=== PATIENT | male | born 1935 | race Caucasian/White ===

== ENCOUNTER 2016-08-08 09:02 | Outpatient (CLI) ==
--- NOTE | 2016-08-08 10:34 | CT ---
EXAM: CT abdomen with and without contrast. CT pelvis with and without contrast. HISTORY: Irritable bowel syndrome. Change in bowel habits. Abdominal pain. COMPARISON: 11/23/2008. TECHNIQUE: Multiple axial images of the abdomen and pelvis were obtained prior to and following int ravenous administration of 80 mL of Visipaque 320, low osmolar. Images reformatted in the coronal p saravanan. FINDINGS: Subsegmental atelectasis or scarring noted in the lung bases. Degenerative changes prese nt in line. Hepatic cysts are stable. The gallbladder, pancreas, spleen, and adrenal glands are unremarkable. Nonobstructing bilateral renal calculi seen. There is no hydronephrosis. Right renal cyst is presen t. Small sliding hiatal hernia noted. Diverticula are present in the colon. The appendix is normal. There is no evidence for bowel obstruction or acute inflammation. Right posterolateral bladder dive rticulum noted on postcontrast axial image 77. Bladder is otherwise unremarkable. Prostate is mild ly enlarged. IMPRESSION: 1. No acute abnormality within the abdomen or pelvis. 2. Diverticulosis. 3. Small hiatal hernia. 4. Bilateral nephrolithiasis. 5. Prostatic enlargement. 6. Right posterolateral urinary bladder diverticulum.
== END 2016-08-08 09:03 | disposition home or self-care (01) ==
LOC: RAD 09:02
PROVIDERS: ATTEND Internal Medicine
DX: K58.9 Irritable bowel syndrome, unspecified (principal)

== ENCOUNTER 2016-10-14 09:54 | Day surgery (SDC) ==
[2016-10-14] MEDS ORDERED: LIDOCAINE 2% 20 ML MDV ONE (10:30)
[2016-10-14] MEDS ORDERED: LIDOCAINE 1% 20 ML MDV ID ONE (10:30)
[2016-10-14] MEDS ORDERED: VERSED ONE (11:35)
[2016-10-14] MEDS ORDERED: DIPRIVAN 20 ML VIAL IVP ONE (11:35)
[2016-10-14 12:52] VITALS: BP 155/96; TEMP 97.7
--- NOTE | 2016-10-15 11:57 | OP ---
INDICATIONS FOR PROCEDURE: 81 year old gentleman present for change in bowel habits manifest by increase in constipation. MEDICATIONS: SEE ANESTHESIA NOTES. PROCEDURE: COLONOSCOPY, SNARE POLYPECTOMY REPORT: The risks, benefits, alternatives and limitations were discussed in detail with the patient. Informed consent was obtained. After adequate sedation was achieved, a digital rectal exam revealed good tone, no masses. The colonoscope was introduced into the rectum and advanced under direct visual guidance to the cecum. The cecum was identified by the appendiceal orifice and IC valve. In the cecum there is a sessile 6-7mm polyp, I removed this by snare technique. I then slowly withdrew the scope in a circumferential manner and examined the mucosa quite carefully. I looked the proximal and distal sides of the folds and flexures as best as possible. In the proximal ascending colon there is a 6mm slightly raised polyp that I removed by snare technique. In the distal ascending colon there is a 4-5mm polyp that was destroyed by using a snare. The pieces that were obtained by the ascending and cecum were placed together in the same pathology jar. In the proximal transverse there is a 5mm slightly raised polyp that I removed by snare technique. There was moderate diverticulosis scattered throughout the descending and left colon manifested by large and small mouth diverticula. In the rectum there is a slightly raised 6mm sessile polyp that I removed by snare technique and no other abnormalities noted including on retroflex view of the anal canal. The prep was good and the withdraw time was 13 minutes and 28 seconds. The patient tolerated the procedure well with stable vital signs and pulse oximetry throughout. IMPRESSION: 1. 5 polyps removed 2. Diverticulosis RECOMMENDATIONS: 1. High fiber diet, I suggested daily fiber supplement. I have talked to him about this. I suggested 8-10grams of fiber daily and the supplement 2. Await polyp pathology and if everything is benign as expected and he is clinically well I recommend a repeat colonoscopy examination again in three years. 3. We will see him back in the office as needed. CC: Dr. Johan BURROWS
== END 2016-10-14 13:10 | disposition home or self-care (01) ==
LOC: SURG 09:54
PROVIDERS: ATTEND Internal Medicine Gastroenterology
DX: K59.00 Constipation, unspecified (principal); D12.0 Benign neoplasm of cecum; D12.3 Benign neoplasm of transverse colon; D12.7 Benign neoplasm of rectosigmoid junction; D12.2 Benign neoplasm of ascending colon; K63.5 Polyp of colon; K57.30 Diverticulosis of large intestine without perforation or abscess without bleeding

== ENCOUNTER 2018-05-20 12:28 | Inpatient (IN) | payer OTHER ==
[2018-05-20] MEDS ORDERED: ZOFRAN 4 MG/2 ML IVP STA (13:06)
[2018-05-20 13:26] VITALS: BMI 28.1
[2018-05-20] MEDS ORDERED: TORADOL IVP SCH (13:30)
[2018-05-20] MEDS ORDERED: TORADOL ONE (13:42)
[2018-05-20] MEDS ORDERED: FLAGYL 500 MG/100 ML 100 ML IV ONE (13:42)
[2018-05-20] MEDS ORDERED: LEVAQUIN 100 ML IV ONE (13:42)
[2018-05-20] MEDS: LEVAQUIN 500 MG in PREMIX 100 ML D5W 1 BAG IV SCH (13:49)
[2018-05-20] MEDS: DEXTROSE 5%-1/2NS IV SOLUTION 1,000 ML IV SCH (13:50)
[2018-05-20] MEDS ORDERED: TORADOL IVP PRN (15:58)
--- NOTE | 2018-05-20 15:58 | CT ---
EXAM: CT abdomen pelvis with contrast TECHNIQUE: Helical axial CT of the abdomen and pelvis was performed with contrast with coronal and s agittal reconstructions. COMPARISON: CT abdomen pelvis from 08/08/2016 HISTORY: Abdominal pain FINDINGS: There is a short loop of sigmoid colon which demonstrates some surrounding mesenteric edema and bowel wall thickening. There are multiple adjacent diverticuli. There is no free air or abscess identifi ed and there is no obstruction or ileus. No pathologic lymph nodes are seen. The appendix is normal. The liver, spleen, pancreas,and adrenal glands show no acute abnormality. There are a few tiny foci o f decreased attenuation within the liver likely simple cyst but too small to characterize. Lung bases are well-aerated. There is no hiatal hernia. The gallbladder is normal with no stones or inflammati on. There is no biliary or pancreatic ductal dilatation. There are no suspicious renal masses or large cysts and no hydronephrosis. There is a nonobstructive calyceal stone measuring about 0.4 cm in the interpolar region on the left. There is a small right r enal cyst. Both ureters demonstrate normal course and caliber. There is no filling defect in the uri nary bladder. There is a bladder diverticulum on the right. The prostate is modestly enlarged. There are no abdominal wall hernias. There is calcific atherosclerosis. There are no acute osseous ab normalities. IMPRESSION: 1. Sigmoid diverticulitis. 2. Right bladder diverticulum. 3. Nonobstructive left-sided nephrolithiasis. 4. Other nonacute findings as above.
--- NOTE | 2018-05-20 16:35 | DI ---
Exam: Chest two-view HISTORY: Chronic obstructive pulmonary disease. Comparison: 10/12/2014. FINDINGS: Two views of the chest demonstrate hyper expanded lungs with no evidence of pneumothorax, pneumonia or edema. There is mild linear opacity in the right mid lung similar to prior. The heart is normal in size and configuration. The thoracic aorta is partially calcified. Calcified granuloma ta are noted. The pulmonary vasculature is not congested. The skeletal structures are intact. There are degenerative findings in the spine. IMPRESSION: No acute cardiopulmonary disease. Hyperexpanded lungs consistent with COPD. Atherosclerosis.
[2018-05-20] MEDS: FLAGYL 500 MG/100 ML 500 MG in PREMIX 100 ML NS 1 BAG IV SCH ×2 (17:51→20:44)
[2018-05-20] MEDS: PROSCAR PO SCH (20:44)
[2018-05-20] MEDS: UROXATRAL PO SCH (20:44)
[2018-05-21] MEDS: DEXTROSE 5%-1/2NS IV SOLUTION 1,000 ML IV SCH ×2 (04:25→19:42)
[2018-05-21] MEDS: FLAGYL 500 MG/100 ML 500 MG in PREMIX 100 ML NS 1 BAG IV SCH ×3 (04:25→20:25)
[2018-05-21] MEDS ORDERED: MILK OF MAGNESIA PO PRN (08:08)
[2018-05-21] MEDS: ASPIRIN EC PO SCH (08:46)
[2018-05-21] MEDS: INDERAL PO SCH (08:46)
[2018-05-21] MEDS: HYZAAR 50-12.5 MG TAB PO SCH (08:46)
[2018-05-21] MEDS: LEVAQUIN 500 MG in PREMIX 100 ML D5W 1 BAG IV SCH (08:46)
--- NOTE | 2018-05-21 08:52 | PCM.PROG ---
Attending Provider: ATTENDING PROVIDER: Dr. VIKTOR FISHMAN DATE OF SERVICE: 05/21/18 SUBJECTIVE: This 83 year old WHITE/ M was hospitalized 05/20/18 with left lower quadrant pain. He has diverticulitis by CT scan. REVIEW OF SYSTEMS: CONSTITUTIONAL: No night sweats. No fatigue, malaise, lethargy. No fever or chills. HEENT: Eyes: No visual changes. No eye pain. No eye discharge. ENT: No runny nose. No epistaxis. No sinus pain. No odynophagia. No congestion. RESPIRATORY: No cough, no congestion. No hemoptysis. No shortness of breath. CARDIOVASCULAR: No angina symptoms. No CHF symptoms. No atypical chest pain for CAD. No palpitations. No orthopnea.. GASTROINTESTINAL: Pain is much less, no BM yet. No nausea or vomiting. No hematemesis. No hematochezia. GENITOURINARY: No urgency. No frequency. No dysuria. No hematuria. No obstructive symptoms. No discharge. No pain. No significant abnormal bleeding. MUSCULOSKELETAL: No musculoskeletal pain; no joint swelling. NEUROLOGICAL: Awake, alert, oriented to time, place and person. No headache. No neck pain. No syncope. No seizures. No dizziness. PSYCHIATRIC: Not anxious. No depression. No suicidal thoughts. No homicidal thoughts. SKIN: No rash. No lesions. No wounds. ENDOCRINE: No unexplained weight loss. No weight gain. HEMATOLOGIC/LYMPHATIC: No anemia. No purpura. No petechiae. No prolonged or excessive bleeding. No palpable lymph nodes. PHYSICAL EXAMINATION: GENERAL: The patient is awake, alert and oriented, lying in bed in no distress. VITAL SIGNS: Temperature 98 F, Pulse 63, Respiratory Rate 18, BP 123/63, Pulse Ox 97% HEENT: Head normocephalic, atraumatic. Eyes: Extraocular muscles are intact. Pupils are equal, round and reactive to light and accommodation. Ears: No lesions. Nose appeared normal. Throat: No exudate or erythema. NECK: Supple. No JVD, no carotid bruit. No lymphadenopathy or thyromegaly. LUNGS: Clear to auscultation. Percussion note normal. Chest symmetrical. HEART: S1, S2, no S3. No murmurs. No cyanosis or clubbing. No ascites. Pulses: Dorsalis pedis and posterior tibial pulses +1 to +2 both sides. ABDOMEN: Soft. Left lower quadrant tenderness, mild. Bowel sounds active. No CVA tenderness. No mass felt. EXTREMITIES: No edema. Full range of motion of all extremities, equal. NEUROLOGIC: No focal deficit. Cranial nerves II through XII are grossly intact. No headache, no double vision or headache. SKIN: Warm and dry. Intact. Turgor-normal. LYMPHATIC: No palpable lymph nodes/no lymphedema. MUSCULOSKELETAL: Normal joints with no swelling. Muscle tone is normal. LAB REVIEW: 05/21/18 05:05 05/21/18 05:05 05/21/18 05:05: Sodium 135.4 L, Potassium 3.78, Chloride 106.4, Carbon Dioxide 27.0, Anion Gap 5.78, BUN 20.7 H, Creatinine 1.56 H, Estimated GFR (MDRD) 43.00 , BUN/Creatinine Ratio 13.26, Glucose 134.4 H, Calcium 8.36 L, Total Bilirubin 0.53, AST 15.3 L, ALT 12.0, Alkaline Phosphatase 48.0 L, Total Protein 5.39 L, Albumin 3.03 L, Globulin 2.36, Albumin/Globulin Ratio 1.28 05/21/18 05:05: WBC 5.34, RBC 3.86 L, Hgb 11.7 L, Hct 34.6 L D, MCV 89.6, MCH 30.3, MCHC 33.8, RDW Coeff of Jac 12.6, Plt Count 94 L, Immature Gran % (Auto) 0.4, Neut % (Auto) 59.2, Lymph % (Auto) 20.4, [place] % (Auto) 12.0 H, Eos % (Auto ) 7.1 H, Baso % (Auto) 0.9, Immature Gran # (Auto) 0.0, Neut # (Auto) 3.2, Lymph # (Auto) 1.1, [place] # (Auto) 0.6, Eos # (Auto) 0.4, Baso # (Auto) 0.1 05/20/18 17:36: Urine Color Yellow, Urine Clarity Clear, Urine pH 5.5, Ur Specific [place] 1.010, Urine Protein Negative, Urine Glucose (UA) Negative, Urine Ketones Negative, Urine Blood 2+, Urine Nitrite Negative, Urine Bilirubin Negative, Urine Urobilinogen 0.2, Ur Leukocyte Esterase Negative, Urine Microscopic RBC 10-20, Ur Squamous Epith Cells Not present 05/20/18 13:25: Sodium 138.9, Potassium 4.20, Chloride 105.8, Carbon Dioxide 30.9 H, Anion Gap 6.40, BUN 20.4 H, Creatinine 1.50 H, Estimated GFR (MDRD) 45.00, BUN/Creatinine Ratio 13.60, Glucose 134.4 H, Calcium 9.39, Total Bilirubin 0.84, AST 20.4, ALT 15.0, Alkaline Phosphatase 65.2, Total Protein 6.90, Albumin 4.15, Globulin 2.75, Albumin/Globulin Ratio 1.50 05/20/18 13:25: WBC 7.38, RBC 4.62 L, Hgb 14.3, Hct 41.8 L, MCV 90.5, MCH 31.0, MCHC 34.2, RDW Coeff of Jac 12.8, Plt Count 115 L, Immature Gran % (Auto) 0.4, Neut % (Auto) 69.7, Lymph % (Auto) 14.4, [place] % (Auto) 9.5, Eos % (Auto) 5.3, Baso % (Auto) 0.7, Immature Gran # (Auto) 0.0, Neut # (Auto) 5.2, Lymph # (Auto ) 1.1, [place] # (Auto) 0.7, Eos # (Auto) 0.4, Baso # (Auto) 0.1 ASSESSMENT: 1. Acute diverticulitis seems to be resolving clinically. 2. Chronic kidney disease. 3. Hypertension. PLAN: 1. Continue antibiotics 2. Diet for diverticulosis 3. Soft diet 4. Milk of Magnesia 30 cc 5. D/C telemetry 6. Continue IV fluids Plan and coordination of the patient's care discussed in the presence of Program Scheduler and nurse. CONDITION: Stable SCRIBED BY: Ember VELAZQUEZ scribed while in presence of service performed by Dr. VIKTOR FISHMAN on 05/21/18 ([id number])
[2018-05-21] MEDS ORDERED: PROSCAR PO SCH (09:00)
[2018-05-21] MEDS ORDERED: UROXATRAL PO SCH (09:00)
[2018-05-21] MEDS ORDERED: FLAGYL 500 MG/100 ML 100 ML IV ONE (12:51)
[2018-05-21] MEDS ORDERED: FLAGYL 500 MG/100 ML IV ONE (20:12)
[2018-05-21] MEDS: UROXATRAL PO SCH (20:25)
[2018-05-21] MEDS: PROSCAR PO SCH (20:25)
[2018-05-22] MEDS: FLAGYL 500 MG/100 ML 500 MG in PREMIX 100 ML NS 1 BAG IV SCH ×3 (05:47→20:48)
[2018-05-22] MEDS ORDERED: LEVAQUIN 100 ML IV ONE (08:09)
[2018-05-22] MEDS ORDERED: FLAGYL 500 MG/100 ML 100 ML IV ONE (08:09)
[2018-05-22] MEDS: ASPIRIN EC PO SCH (08:34)
[2018-05-22] MEDS: LEVAQUIN 500 MG in PREMIX 100 ML D5W 1 BAG IV SCH (08:34)
[2018-05-22] MEDS: INDERAL PO SCH (08:34)
[2018-05-22] MEDS: HYZAAR 50-12.5 MG TAB PO SCH (08:34)
[2018-05-22] MEDS: DEXTROSE 5%-1/2NS IV SOLUTION 1,000 ML IV SCH (10:34)
[2018-05-22] MEDS ORDERED: MILK OF MAGNESIA PO STA (13:26)
[2018-05-22] MEDS ORDERED: DULCOLAX RC STA (13:26)
[2018-05-22] MEDS: UROXATRAL PO SCH (20:48)
[2018-05-22] MEDS: PROSCAR PO SCH (20:49)
[2018-05-23] MEDS: FLAGYL 500 MG/100 ML 500 MG in PREMIX 100 ML NS 1 BAG IV SCH ×3 (05:54→20:04)
[2018-05-23] MEDS: HYZAAR 50-12.5 MG TAB PO SCH (08:45)
[2018-05-23] MEDS: LEVAQUIN 500 MG in PREMIX 100 ML D5W 1 BAG IV SCH (08:45)
[2018-05-23] MEDS: ASPIRIN EC PO SCH (08:45)
[2018-05-23] MEDS: INDERAL PO SCH (08:45)
[2018-05-23] MEDS: UROXATRAL PO SCH (20:04)
[2018-05-23] MEDS: PROSCAR PO SCH (20:04)
[2018-05-24] MEDS: FLAGYL 500 MG/100 ML 500 MG in PREMIX 100 ML NS 1 BAG IV SCH (05:10)
[2018-05-24] MEDS: ASPIRIN EC PO SCH (08:38)
[2018-05-24] MEDS: INDERAL PO SCH (08:38)
[2018-05-24] MEDS: HYZAAR 50-12.5 MG TAB PO SCH (08:38)
--- NOTE | 2018-05-24 09:05 | CT ---
EXAM: CT abdomen with and without contrast. CT pelvis with and without contrast. HISTORY: Diverticulitis follow-up. COMPARISON: 05/20/2018, 08/08/2016. TECHNIQUE: Multiple axial images of the abdomen and pelvis were obtained prior to and following intr avenous administration of 75 mL of Visipaque 320, low osmolar. Images reformatted in the sagittal an d coronal plane. FINDINGS: Degenerative changes present in the spine. Right middle lobe and lingular subsegmental at electasis or scarring is stable. Hepatic cysts again noted. The gallbladder, pancreas, spleen, adrenal glands, and kidneys are withou t acute abnormality. Bilateral nephrolithiasis noted without hydronephrosis. Right renal cyst again seen. Small hiatal hernia noted. Mild inflammation surrounding a sigmoid diverticulum on postcontrast axia l image 67 has mildly decreased since the prior study. There is no evidence for bowel obstruction, p erforation or abscess. The appendix is normal. Right posterolateral bladder diverticulum again seen . Prostate is mildly enlarged. Phleboliths present in the pelvis. Atherosclerotic calcifications n oted. No free fluid, free air or lymphadenopathy identified. Suspect fat-containing right femoral he rnia and left inguinal hernia. IMPRESSION: Mild improvement in sigmoid diverticulitis. No new findings within the abdomen or pelvis.
[2018-05-24 10:05] VITALS: BP 117/75; TEMP 97.9
--- NOTE | 2018-05-24 10:32 | PCM.PROG ---
Attending Provider: ATTENDING PROVIDER: Dr. VIKTOR FISHMAN DATE OF SERVICE: 05/24/18 SUBJECTIVE: This 83 year old WHITE/ M was hospitalized 05/20/18 with acute diverticulitis. Clinically, diverticulitis has resolved. REVIEW OF SYSTEMS: CONSTITUTIONAL: No night sweats. No fatigue, malaise, lethargy. No fever or chills. HEENT: Eyes: No visual changes. No eye pain. No eye discharge. ENT: No runny nose. No epistaxis. No sinus pain. No odynophagia. No congestion. RESPIRATORY: No cough, no congestion. No hemoptysis. No shortness of breath. CARDIOVASCULAR: No angina symptoms. No CHF symptoms. No atypical chest pain for CAD. No palpitations. No orthopnea.. GASTROINTESTINAL: Positive for mild soreness left lower quadrant. No nausea or vomiting. No diarrhea or constipation. No hematemesis. No hematochezia. GENITOURINARY: No urgency. No frequency. No dysuria. No hematuria. No obstructive symptoms. No discharge. No pain. No significant abnormal bleeding. MUSCULOSKELETAL: No musculoskeletal pain; no joint swelling. NEUROLOGICAL: Awake, alert, oriented to time, place and person. No headache. No neck pain. No syncope. No seizures. No dizziness. PSYCHIATRIC: Not anxious. No depression. No suicidal thoughts. No homicidal thoughts. SKIN: No rash. No lesions. No wounds. ENDOCRINE: No unexplained weight loss. No weight gain. HEMATOLOGIC/LYMPHATIC: No anemia. No purpura. No petechiae. No prolonged or excessive bleeding. No palpable lymph nodes. PHYSICAL EXAMINATION: GENERAL: The patient is awake, alert and oriented, sitting in bed in no distress. VITAL SIGNS: Temperature 98.7 F, Pulse 84, Respiratory Rate 16, BP 121/72, Pulse Ox 95% HEENT: Head normocephalic, atraumatic. Eyes: Extraocular muscles are intact. Pupils are equal, round and reactive to light and accommodation. Ears: No lesions. Nose appeared normal. Throat: No exudate or erythema. NECK: Supple. No JVD, no carotid bruit. No lymphadenopathy or thyromegaly. LUNGS: Clear to auscultation. Percussion note normal. Chest symmetrical. HEART: S1, S2, no S3. No murmurs. No cyanosis or clubbing. No ascites. Pulses: Dorsalis pedis and posterior tibial pulses +1 to +2 both sides. ABDOMEN: Soft. Soreness left lower quadrant. Bowel sounds active. No CVA tenderness. No mass felt. EXTREMITIES: No edema. Full range of motion of all extremities, equal. NEUROLOGIC: No focal deficit. Cranial nerves II through XII are grossly intact. No headache, no double vision or headache. SKIN: Warm and dry. Intact. Turgor-normal. LYMPHATIC: No palpable lymph nodes/no lymphedema. MUSCULOSKELETAL: Normal joints with no swelling. Muscle tone is normal. LAB REVIEW: 05/24/18 04:35 05/24/18 04:35 05/24/18 04:35: Sodium 137.6, Potassium 3.93, Chloride 106.7, Carbon Dioxide 23.9, Anion Gap 10.93, BUN 17.8, Creatinine 1.50 H, Estimated GFR (MDRD) 45.00, BUN/Creatinine Ratio 11.86, Glucose 126.1 H, Calcium 8.86, Total Bilirubin 0.53 , AST 28.6, ALT 18.3, Alkaline Phosphatase 62.6, Total Protein 6.23 L, Albumin 3.74, Globulin 2.49, Albumin/Globulin Ratio 1.50 05/24/18 04:35: WBC 6.15, RBC 4.39 L, Hgb 13.5 L, Hct 39.2 L, MCV 89.3, MCH 30.8 , MCHC 34.4, RDW Coeff of Jac 12.6, Plt Count 119 L, Immature Gran % (Auto) 0.3 , Neut % (Auto) 55.2, Lymph % (Auto) 25.4, [place] % (Auto) 11.5 H, Eos % (Auto) 6.3, Baso % (Auto) 1.3, Immature Gran # (Auto) 0.0, Neut # (Auto) 3.4, Lymph # ( Auto) 1.6, [place] # (Auto) 0.7, Eos # (Auto) 0.4, Baso # (Auto) 0.1 ASSESSMENT: Acute diverticulitis seems to have resolved. PLAN: 1. Discharge home. 2. Waiting for CT scan report. 3. Will advance diet. Plan and coordination of the patient's care discussed in the presence of Box Sealing Machine Catcher and nurse. CONDITION: Stable SCRIBED BY: CHERIE HOLT Clinical Appeals Specialist scribed while in presence of service performed by Dr. VIKTOR FISHMAN on 05/24/18 ([id number])
--- NOTE | 2018-05-24 10:56 | DS ---
DATE OF SERVICE: 05/24/18 FINAL DIAGNOSIS: 1. ACUTE SIGMOID DIVERTICULITIS (CT ABD/PELVIS AT [facility], 05/20/18) 2. LEFT LOWER QUADRANT ABDOMINAL PAIN 3. CONSTIPATION 4. ATHEROSCLEROSIS 5. HYPERTENSION 6. COPD 7. CHRONIC KIDNEY DISEASE 8. BPH 9. DIVERTICULOSIS PER COLONOSCOPY (DR. WALKER AT [facility], 10/14/16) 10. 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 ORCHIECTOMY (CHILDHOOD) 14. HERNIORRHAPHY 15. FACIAL TUMOR EXCISION 16. POLYPECTOMY (DR. WALKER AT [facility], 10/14/16) BENIGN 17. NEVER SMOKER DISCHARGE INSTRUCTIONS: Followup appointment scheduled with Dr. Prado for , 05/27/18 at 8 a.m. MEDICATIONS AT DISCHARGE: Propranolol 20 mg p.o. daily Finasteride 5 mg p.o. daily Uroxatral 10 mg p.o. daily Losartan/Hydrochlorothiazide one tab p.o. daily Aspirin 81 mg p.o. daily NEW PRESCRIPTIONS: Metronidazole (Flagyl) 500 mg take one tablet by mouth three times daily for 5 days only. DIET INSTRUCTIONS: Diet appropriate for diverticulitis. ACTIVITY: As tolerated. SMOKING: N/A DISEASE SPECIFIC EDUCATION: Diverticulitis Diet for diverticulitis HOSPITAL COURSE: This is an 83-year-old White/ male hospitalized with acute diverticulitis treated with Levaquin and Flagyl. Condition has improved. CT scan showed acute diverticulitis. Clincally diverticulitis seems to have resolved. He is having bowel movements. Appetite is normal. The patient is up and about. He is afebrile with WBC count of 6,000. Diverticuliosis diet discussed, no seeds or nuts. TIME SPENT: More than 60 minutes. [facility]
--- NOTE | 2018-05-24 10:57 | PN ---
CODING FOR BILLIN05/20/18 ADMISSION - LEVEL 5 05/21/18 INTERMEDIATE 05/22/18 INTERMEDIATE 05/23/18 INTERMEDIATE 05/24/18 DISCHARGE MTDD
--- NOTE | 2018-05-25 13:59 | HP ---
DATE OF SERVICE: 05/20/18 HISTORY OF PRESENT ILLNESS: This is an 83-year-old male with fever 2 to 3 days, left lower quadrant pain localized, constipation, no dysuria. Appetite is not good. PAST MEDICAL/SURGICAL HISTORY: Hernia repair Navel removed Basal cell CA Hypertension CKD Stage 3 BPH COPD Dyslipidemia Hyperglycemia Basal cell right arm, Dr. Warner Cervical radiculopathy Osteoarthritis knees Dizziness Testicle removed when he was a child REVIEW OF SYSTEMS: CONSTITUTIONAL: No fever, no fatigue. HEENT: No sinus drainage, no sore throat. RESPIRATORY: No cough, no congestion. CARDIOVASCULAR: No atypical chest pain for coronary artery disease. No angina , CHF symptoms, palpitations or shortness of breath. GASTROINTESTINAL: Abdominal pain. No melena. No GERD. GENITOURINARY: No hematuria, no prostatism, no polyuria. ROOM SERVICE SERVER: No blackout, no dizziness, no headache, no double vision. MUSCULOSKELETAL: Osteoarthritis pain. ENDOCRINE: No weight loss, no weight gain. SKIN: Not dry, no rash. PSYCHIATRIC: Not anxious, no depression, no suicidal thoughts, no homicidal thoughts. SOCIAL HISTORY: Marital Status: . Lives with . Alcohol Usage: No. Tobacco Usage: None. Occupation - retired. Three children. No illicit drug use. FAMILY HISTORY: Father , mother . One sister. MEDICATIONS: (home) Propranolol 20 mg p.o. daily Finasteride 5 mg p.o. daily Uroxatral 10 mg p.o. daily Losartan/Hydrochlorothiazide one tab p.o. daily Aspirin 81 mg p.o. daily ALLERGIES: NKDA PHYSICAL EXAMINATION: V/S: Pulse 77, BP 122/74, temperature 98.8, 02 sat 96%. Height 6'1", BMI 28.2, weight 214.2. GENERAL APPEARANCE: Oriented times three. HEENT: Normal. NECK: No JVP, no bruits. RESPIRATORY: Lungs are clear. CARDIOVASCULAR: S1, S2, no S3, no murmurs. No cyanosis, clubbing. No ascites. GI/ABDOMEN: Tenderness left lower quadrant. No rebound. Bowel sounds are active. EXTREMITIES: No edema, pulses +1, equal. ROOM SERVICE SERVER: Deep tendon reflexes, sensory, motor and gait all normal. ASSESSMENT: 1. LEFT LOWER QUADRANT PAIN, ACUTE DIVERTICULITIS 2. HYPERTENSION 3. RIGHT SCIATICA 4. CHRONIC KIDNEY DISEASE, STAGE 3 5. BENIGN PROSTATIC HYPERTROPHY - DR. WEBSTER 6. DYSLIPIDEMIA 7. COPD 8. CERVICAL RADICULOPATHY 9. HYPERGLYCEMIA 10. OSTEOARTHRITIS KNEES 11. BASAL CELL RIGHT ARM, DRYang CASE 12. DIZZINESS PLAN: 1. Diet - full liquid, no dairy 2. 1000 cc's D5/1/2 NS [address] scan abdomen and pelvis with contrast now 4. Chest x-ray today 5. EKG today 6. CBC, CMP today and a.m. 7. UA 8. Telemetry 9. Flagyl 500 mg IV 10. Levaquin 500 mg IV q.a.m. x3 11. Zofran 4 mg IV now 12. IV Toradol 30 mg IV now and 8 hourly p.r.n. TIME SPENT: More than 70 minutes. MTDD
== END 2018-05-24 11:27 | disposition home or self-care (01) | DRG 392 ==
LOC: MEDSURG B 12:28
PROVIDERS: ADMIT Internal Medicine; ATTEND Internal Medicine
DX: R10.32 Left lower quadrant pain (principal); K59.00 Constipation, unspecified; K21.9 Gastro-esophageal reflux disease without esophagitis; I70.90 Unspecified atherosclerosis; I10 Essential (primary) hypertension; N18.9 Chronic kidney disease, unspecified; N40.0 Benign prostatic hyperplasia without lower urinary tract symptoms; M50.30 Other cervical disc degeneration, unspecified cervical region; J44.9 Chronic obstructive pulmonary disease, unspecified
CPT/HCPCS: 36415; 80053; 81001; 85025; 93005; 93010

== ENCOUNTER 2018-10-07 06:40 | Outpatient (CLI) ==
--- NOTE | 2018-10-11 11:37 | ECHO2D ---
Date of Exam: 10/07/2018 Ordering Physician: DR. FISHMAN Room #: OUTPATIENT Reason for Echo: SHORTNESS OF BREATH M-Mode Normal Adult Results LV Dimensions Normal Adult Results AoV Opening excursions >1.6 >1.6 LVEDD-base- 3.5-5.8 5.4 Ao root dimensions 2.0-3.7 4.1 LVESD-base- 3.1-4.6 L. Atrium dimensions 1.9-3.8 5.1 Post. Wall thickness 0.8-1.1 1.1 IV septum (thickness) 0.7-1.2 1.2 Post. Wall excursion 0.72-1.3 NORMAL Septal motion NORMAL Systolic motion R. Ventricular cavity 1.5-2.0 NORMAL LVEF 60% 48% Paradoxical septal wall motion NORMAL 2-D : DILATED AORTIC ROOT, ENLARGED LEFT ATRIAL CAVITY, OTHERWISE NORMAL M-MODE: MV: NORMAL AV: NORMAL TV: NORMAL PV: CHAMBER SIZE: ENLARGED LEFT ATRIAL CAVITY WALL MOTION: NORMAL PERICARDIUM: NORMAL INTERPRETATION: 1. MILDLY DILATED AORTIC ROOT 2. ENLARGED LEFT ATRIAL CAVITY 5.1CM 3. NORMAL LEFT VENTRICULAR CONTRACTILITY 4. NORMAL VALVES MTDD
--- NOTE | 2018-10-11 11:39 | ECHOSTRESS ---
Date of Exam: 10/07/2018 Ordering Physician: DR. FISHMAN Reason for Echo: SHORTNESS OF BREATH, HYPERTENSION, CHEST PAIN, STRESS TEST = NO ISCHEMIA M-Mode Normal Adult Results LV Dimensions Normal Adult Results AoV Opening excursions >1.6 LVEDD-base- 3.5-5.8 Ao root dimensions 2.0-3.7 LVESD-base- 3.1-4.6 L. Atrium dimensions 1.9-3.8 Post. Wall thickness 0.8-1.1 IV septum (thickness) 0.7-1.2 Post. Wall excursion 0.72-1.3 Septal motion Systolic motion R. Ventricular cavity 1.5-2.0 LVEF 60% Paradoxical septal wall motion 2-D: NORMAL LEFT VENTRICULAR CONTRACTILITY RESTING AND POST EXERCISE M-MODE: MV: AV: TV: PV: CHAMBER SIZE: WALL MOTION: NORMAL LEFT VENTRICULAR CONTRACTILITY RESTING AND POST EXERCISE PERICARDIUM: INTERPRETATION: 1. NORMAL LEFT VENTRICULAR CONTRACTILITY RESTING AND POST EXERCISE MTDD
--- NOTE | 2018-10-11 11:46 | STRESSMOD ---
Date of Test: 10/07/2018 Ordering Physician: DR. FISHMAN Occupation:RETIRED Reason for Exam: SHORTNESS OF BREATH, HYPERTENSION Smoking History: NON SMOKER Height: 72" Weight: 218 Current Medications: ALFUZOSIN HCL, LOSARTAN HCTZ, FINASTERIDE, PROPRANOLOL Resting EKG: SINUS RHYTHM WITH INCOMPLETE LEFT BUNDLE BRANCH BLOCK Target Heart Rate: 116 / 137 98% Oxygen saturation at rest on room air S-T SEGMENT STAGE MPH/GRADE HEART RATE BPM BLOOD PRESSURE mmhg RHYTHM +/- ELEVATION DEPRESSION SYMPTOMS At Rest 70 172/88 SR X NONE 1 1.7/0% 100 168/84 SR X NONE 2 1.7/5% 105 164/88 SR X NONE 3 1.7/10% 4 2.5/12% 5 3.4/14% Immediately After 115 SR X MILD SHORTNESS OF BREATH Minutes Post Exercise 5 75 166/82 SR X NONE Minutes Post Exercise DURATION OF EXERCISE: 7 MINUTES AND 30 SECONDS MAXIMUM HEART RATE REACHED: 115 REASON FOR TERMINATION: MILD SHORTNESS OF BREATH 97% OXYGEN SATURATION WITH EXERCISE ON ROOM AIR METS 4.6 99% OXYGEN SATURATION 5 MINUTES POST TEST ON ROOM AIR INTERPRETATION: 1. NO EVIDENCE OF ISCHEMIA BY ST-T WAVE 2. NO CHEST PAIN OR DISCOMFORT 3. NO ARRHYTHMIAS 4. BLOOD PRESSURE RESPONSE NORMAL - HYPERTENSION AT REST 5. NORMAL LEFT VENTRICULAR CONTRACTILITY RESTING AND POST EXERCISE MTDD
== END 2018-10-07 06:41 | disposition home or self-care (01) ==
LOC: CAR 06:40
PROVIDERS: ATTEND Internal Medicine
DX: R06.02 Shortness of breath (principal); I10 Essential (primary) hypertension
CPT/HCPCS: 93005; 93010